=== PATIENT | male | born 1945 | race Caucasian/White ===

== ENCOUNTER → 2018-09-02 | Outpatient (CLI) | payer MEDICARE, BC ==
--- NOTE | 2018-09-02 17:16 | CONS ---
Assessment/Plan Assessment/Plan Hospital Course (Demo Recall) 73-year-old male with acute on chronic right knee pain. On examination today he has severe varus thrust. His gait is abnormal. In addition to his disequilibrium from his peripheral neuropathy he has an antalgic gait from his right knee. There is instability on examination. His osteoarthritis on x-ray does not seem severe enough to cause his instability. He may have a ligamentous injury. An MRI would be useful in further evaluating the knee. Based on the results of the MRI a medial coal unloader brace may be recommended. Follow-up after MRI of right knee. Consultation Date/Type/Reason Admit Date/Time Date of Consultation: Sep 02, 2018 Reason for Consultation Right knee pain Date/Time of Note DATE: 09/02/18 TIME: 16:56 Hx of Present Illness This Is a 73-year-old male with a chief complaint of right knee pain. The pain is acute on chronic and began approximately 1 month ago. He has had previous steroid injections to his knee with much success. However starting 1 month ago he again had severe pain with no relief from a steroid injection. The patients pain is in the medial aspect of the right knee. Pain is not radiating to the lower leg. The pain is rated as a 6/10. Patient denies complaints of numbness or tingling. The pain is exacerbated by climbing stairs and ambulation. Patient has history of lower extremity idiopathic peripheral neuropathy. He has much difficulty ambulating secondary to his peripheral neuropathy as well as his knee pain. He uses a cane. Duration: Acutely times 1 month. Chronic pain for years and right knee Injury: No Walking tolerance: 1 block Limp: Yes Support: Cane Swelling: Yes Crepitation: Yes Instability: No Stairs: Does not use Physical Therapy: no Injections: Yes. Multiple steroid injections. Last steroid injection on August 12, 2018 NSAIDs: No Prior surgery: No Back pain: No Hip pain: No Risk of AVN : No Patient denies fever, chills, shortness of breath, chest pain, nausea/vomiting, constipation, diarrhea. Patient does have numbness and tingling up to bilateral mid tibias Past Medical History Idiopathic peripheral neuropathy Hypertension Stenosis of coronary arteries Past Surgical History Coronary artery stents Cervical and lumbar laminectomies Right Achilles tendon repair Family History Significant Family History: no pertinent family hx Social History Alcohol Use: heavy (5 drinks a week) Smoking Status: Never smoker Drug Use: none Exam/Review of Systems Exam Vitals Patient vitals were reviewed in the chart and are within normal limits Exam General: Alert, oriented x3. No Acute Distress. Heart: Regular rate and rhythm. Lungs: No respiratory distress. No accessory muscle use. Musculoskeletal: Right Knee This is a well developed male who is alert, oriented times three and in no apparent distress. Skin is intact over the right knee as well as the lower extremity with no yohana sions, lacerations, or ulcerations. Observation of the patient's gait reveals an antalgic gait with significant thrust and disequilibrium. Frontal plane alignment is varus. There is pain on palpation of medial joint line, MCL and hamstrings. The patient demonstrates grinding anteriorly with ROM. Range of motion: 5 extension to approximately 130 degrees of flexion. Collateral ligament testing reveals instability with valgus stress at 0 and 30 degrees of flexion and no instability with varus stress at 0 and 30 degrees of flexion. Negative Eduardo's and negative posterior drawer. Neurovascularly intact with 5/5 EHL/tibialis anterior/gastroc. Sensation decreased to light touch in a sural, saphenous, deep peroneal, superficial peroneal, medial and lateral plantar nerve distribution. Palpable, symmetric dorsalis pedis and posterior tibial pulses in both lower extremities. Hip examination normal. Imaging Imaging The patient received a standard set of films today that were personally reviewed. Imaging included a standing bilateral knee AP, PA flexion, merchant views and a dedicated lateral of the affected knee: There is varus alignment of the knee. There is mildmoderate loss of joint space medial compartment(s). There is no osteophyte formation. There is no no subchondral sclerosis. There are no subchondral cysts. Degenerative changes are most severe in the medial compartment(s) RAFA MADDOX MD Sep 02, 2018 17:06
== END | disposition home or self-care (01) ==
LOC: HKI 14:24
PROVIDERS: ATTEND Orthopaedic Surgery Adult Reconstructive Orthopaedic Surgery
DX: M25.561 Pain in right knee (principal); G62.9 Polyneuropathy, unspecified; I10 Essential (primary) hypertension; I25.10 Atherosclerotic heart disease of native coronary artery without angina pectoris; Z98.61 Coronary angioplasty status
CPT/HCPCS: 73564; G0463

== ENCOUNTER → 2018-09-08 | Outpatient (CLI) | payer MEDICARE, BC ==
--- NOTE | 2018-09-08 17:56 | CONS ---
Consult Date/Type/Reason Admit Date/Time Initial Consult Date Date/Time of Note DATE: 09/08/18 TIME: 17:45 Subjective 73-year-old male returns to clinic today for follow-up after MRI of right knee. His symptoms are unchanged. Continues to have significant pain with weightbearing. Feels instability in his knee when he weight bears. When he is not weightbearing he does not have much pain. Of note which is not clear at the first visit he does see a patient navigator and he was worked up for inflammatory arthritis. At one point he was thought to have rheumatoid arthritis versus psoriatic arthritis. No specific diagnosis was given. However he is on sulfasalazine. Objective Vitals Weight: 218 pounds Height: 5 foot 10 inches Heart Rate: 63 Blood Pressure: 154/73 Exam General: Alert, oriented x3. No Acute Distress. Heart: Regular rate and rhythm. Lungs: No respiratory distress. No accessory muscle use. Musculoskeletal: Right Knee This is a well developed male who is alert, oriented times three and in no apparent distress. Skin is intact over the right knee as well as the lower extremity with no abrasions, lacerations, or ulcerations. Observation of the patient's gait reveals an antalgic gait with significant thrust and disequilibrium. Frontal plane alignment is varus. There is pain on palpation of medial joint line, MCL and hamstrings. 2+ effusion. The patient demonstrates grinding anteriorly with ROM. Range of motion: 5 extension to approximately 130 degrees of flexion. Collateral ligament testing reveals instability with valgus stress at 0 and 30 degrees of flexion and no instability with varus stress at 0 and 30 degrees of flexion. Negative Eduardo's and negative posterior drawer. Neurovascularly intact with 5/5 EHL/tibialis a nterior/gastroc. Sensation decreased to light touch in a sural, saphenous, deep peroneal, superficial peroneal, medial and lateral plantar nerve distribution. Palpable, symmetric dorsalis pedis and posterior tibial pulses in both lower extremities. Hip examination normal. Results/Medications Imaging MRI of the right knee was personally reviewed. Extensive complex tear of the medial meniscal body and posterior body. Large para meniscal cyst. Tricompartmental arthritis with full-thickness chondral loss in the medial femoral condyle and medial tibial plateau in the weightbearing portion. Moderate chondral thinning in the patellofemoral joint. Moderate insertional quadriceps tendinosis. There is cystic changes versus erosions at the insertion. Moderate-sized joint effusion. Severe muscle atrophy seen in the proximal calf musculature Assessment/Plan Hospital Course (Demo Recall) 73-year-old male with medial compartment arthritis. His collateral ligaments are intact. He does have instability on examination with severe varus thrust. There is a question whether he has an inflammatory arthritis. He is currently being worked up for neuromuscular disorder with muscle biopsies. At this time I would like to continue conservative treatment with the patient. I think he would benefit from aspiration of the large effusion with a steroid injection followed by a medial ship unloader brace on the right knee. If this completely fails surgery will be discussed. Plan: Right knee aspiration and steroid injection Prescription for medial ship unloader brace. Follow-up after wearing the brace for 6 weeks. Assessment/Plan (Daily) Right knee aspiration and steroid injection procedure: Risks and benefits aspiration reviewed with patient. The risks include infection, failure, pain, swelling, nerve/tendon/ligament damage. The patient verbalized understanding and verbal consent was obtained prior to procedure. The right knee was prepped in a sterile fashion with alcohol and betadine the site of aspiration was confirmed. Lateral approach was used. The skin and capsule was anesthetized with 3mL 1% lidocaine careful not to inject intra- articularly. The right knee was aspirated. 40 mL of blood-tinged thick synovial fluid was aspirated. The right knee was injected with 2mL 1% lidocaine, 2mL 0.25% bupivacaine, 40mg Depo-Medrol. Injection flowed freely. Good hemostasis was achieved and no complications noted. The patient tolerated the procedure well. Limit activity and ice for 24-48 hours. RAFA MADDOX MD Sep 08, 2018 17:55
== END | disposition home or self-care (01) ==
LOC: HKI 14:27
PROVIDERS: ATTEND Orthopaedic Surgery Adult Reconstructive Orthopaedic Surgery
DX: M13.861 Other specified arthritis, right knee (principal)
CPT/HCPCS: G0463; J1030